=== PATIENT | female | born 1950 | race Caucasian/White ===

== ENCOUNTER 2017-03-10 18:51 | Emergency (ER) | payer OTHER ==
[~2017-03-10] VITALS: Ht 162.6 cm; Wt 92.5 kg
[~2017-03-10 18:51] MED LIST: ALEVE220 MG PO; ALKA-SELTZER P1 EAC6 PO; CARAFATE100 MG/ML PO; GUAIFENESIN600 M1 PO; NEXIUM40 MG PO; PAXIL20 MG PO; REQUIP1 MG PO; SINGULAIR10 MG PO; SYNTHROID50 MCG PO; TRAZODONE HCL50 MG PO; ZOFRAN4 MG PO
[2017-03-10 19:42] LABS: HEMATOCRIT 38.6 % (36.0-46.0); HEMOGLOBIN 13.2 G/DL (11.9-15.5); MCH 28.9 PG (29.0-34.0); MCHC 34.2 G/DL (30.0-36.0); MCV 84.5 FL (83-99); PLATELET COUNT 235 K/uL (156-360); RBC DIS.WIDTH-CV 12.7 % (11.8-14.6); RBC DIS.WIDTH-SD 38.4 % (39-53); RED BLOOD COUNT 4.57 M/uL (3.80-5.20); WHITE BLOOD COUNT 8.8 K/uL (4.1-10.2)
[2017-03-10 19:57] LABS: CHLORIDE 106 mEq/L (99-109); POTASSIUM 3.5 mEq/L (3.7-5.4)
[2017-03-10 19:58] LABS: SODIUM 141 mEq/L (136-147)
[2017-03-10 19:59] LABS: GLUCOSE 138 mg/dL (70-99)
[2017-03-10 20:03] LABS: GFR ESTIMATE (CALCULATED) 59 mL/min/
[2017-03-10 20:04] LABS: UREA NITROGEN (BUN) 11 mg/dL (9-23)
[2017-03-10 20:08] LABS: TROP-I INTERPRETATION NEGATIVE; TROPONIN-I 0.02 ng/mL (0.0-0.30)
[2017-03-10] MEDS ORDERED: PHENERGAN1.25 MG/ML PO (21:22)
[2017-03-10] MEDS ORDERED: PROAIR HFA8.5 GM IH (21:22)
[2017-03-10] MEDS ORDERED: DOXYCYCLINE HY100 MG PO (21:22)
[2017-03-10 22:25] VITALS: BP 169/110
== END 2017-03-10 22:52 | disposition home or self-care (01) ==
LOC: EME 18:51
DX: J40 Bronchitis, not specified as acute or chronic (principal); F17.200 Nicotine dependence, unspecified, uncomplicated; E11.9 Type 2 diabetes mellitus without complications; K21.9 Gastro-esophageal reflux disease without esophagitis; N18.9 Chronic kidney disease, unspecified; E03.9 Hypothyroidism, unspecified; F32.9 Major depressive disorder, single episode, unspecified; F41.9 Anxiety disorder, unspecified; G25.81 Restless legs syndrome; Z88.1 Allergy status to other antibiotic agents; Z88.5 Allergy status to narcotic agent; Z88.2 Allergy status to sulfonamides; Z88.0 Allergy status to penicillin
CPT/HCPCS: 71046; 80048; 84484; 85027; 87502; 93005; 99281; 99284

== ENCOUNTER 2017-03-16 13:52 | Inpatient (IN) | payer OTHER ==
[~2017-03-16] VITALS: Ht 162.6 cm; Wt 91.9 kg
[~2017-03-16 13:52] MED LIST changes: +DESYREL100 MG PO; +DOXYCYCLINE HY100 MG PO; -GUAIFENESIN600 M1 PO; +MUCINEX1200 MG PO; -PAXIL20 MG PO; +PAXIL30 MG PO; +PHENERGAN1.25 MG/ML PO; +PROAIR HFA8.5 GM IH; -REQUIP1 MG PO; +REQUIP3 MG PO; -TRAZODONE HCL50 MG PO
[2017-03-16 14:44] LABS: BASOPHIL (%) 0.2 % (0-1); EOSINOPHIL (%) 0 % (0-5); HEMOGLOBIN 14.3 G/DL (11.9-15.5); IMMATURE GRANULOCYTE (%) 0.2 % (0.0-0.7); LYMPHOCYTE (%) 31.3 % (15-42); LYMPHOCYTE COUNT 1.8 K/uL (1.0-2.8); MCH 28.3 PG (29.0-34.0); MCHC 33.3 G/DL (30.0-36.0); MONOCYTE (%) 8.8 % (3-12); MONOCYTE COUNT 0.5 K/uL (0-0.8); NEUTROPHIL (%) 59.5 % (45-76); NEUTROPHIL COUNT 3.4 K/uL (1.8-6.4); PLATELET COUNT 185 K/uL (156-360); RBC DIS.WIDTH-CV 12.7 % (11.8-14.6); RBC DIS.WIDTH-SD 39.2 % (39-53); RED BLOOD COUNT 5.06 M/uL (3.80-5.20); WHITE BLOOD COUNT 5.7 K/uL (4.1-10.2)
[2017-03-16 15:04] LABS: TROP-I INTERPRETATION NEGATIVE; TROPONIN-I 0.01 ng/mL (0.0-0.30)
[2017-03-16 15:08] LABS: ALBUMIN 3.8 g/dL (3.2-4.8); ALKALINE PHOSPHATASE 69 IU/L (3-129); ALT (GPT) 43 IU/L (3-49); AST (GOT) 87 IU/L (2-34); CHLORIDE 100 mEq/L (99-109); CREATININE 1.4 mg/dL (0.6-1.3); GFR ESTIMATE (CALCULATED) 40 mL/min/; GLUCOSE 103 mg/dL (70-99); POTASSIUM 4.7 mEq/L (3.7-5.4); SODIUM 138 mEq/L (136-147); TOTAL BILIRUBIN 0.3 mg/dL (0.0-1.0); TOTAL PROTEIN 7.1 g/dL (6.4-8.3); UREA NITROGEN (BUN) 21 mg/dL (9-23)
[2017-03-16 16:00] LABS: APPEARANCE SL.HAZY ((CLEAR)); BILIRUBIN NEGATIVE; BLOOD NEGATIVE; COLOR YELLOW ((YELLOW)); GLUCOSE (STRIP) NEGATIVE; KETONES NEGATIVE; LEUKOCYTES NEGATIVE; NITRITE NEGATIVE; PROTEIN (STRIP) 30; SPECIFIC GRAVITY 1.019 (1.000-1.030); UROBILINOGEN 0.2 MG/DL (0.2-1.0)
[2017-03-16 16:07] LABS: BACTERIA RARE /HPF; EPITHELIAL CELLS RARE /HPF; MUCUS TRACE /LPF; RED BLOOD CELLS 0-5 /HPF (0-5); UCUL ADDED? NO; WHITE BLOOD CELLS 0-5 /HPF (0-5)
[2017-03-16 17:48] LABS: TROP-I INTERPRETATION NEGATIVE; TROPONIN-I 0.02 ng/mL (0.0-0.30)
[2017-03-16 23:07] VITALS: BP 119/56
[2017-03-17 08:34] VITALS: BP 140/72
[2017-03-17 09:22] LABS: BENZODIAZEPINES, URINE SCREEN Negative (200 ng/mL)
[2017-03-17 12:20] VITALS: BP 120/68
[2017-03-17 15:50] VITALS: BP 115/61
[2017-03-17 19:48] VITALS: BP 108/62
[2017-03-17 23:54] VITALS: BP 142/73
[2017-03-18 07:15] LABS: BASOPHIL (%) 0 % (0-1); EOSINOPHIL (%) 0.2 % (0-5); HEMATOCRIT 31.6 % (36.0-46.0); LYMPHOCYTE COUNT 2.6 K/uL (1.0-2.8); MCH 28.7 PG (29.0-34.0); MCHC 32.9 G/DL (30.0-36.0); MCV 87.3 FL (83-99); MONOCYTE (%) 5.7 % (3-12); MONOCYTE COUNT 0.3 K/uL (0-0.8); NEUTROPHIL (%) 41.1 % (45-76); PLATELET COUNT 135 K/uL (156-360); RBC DIS.WIDTH-CV 12.8 % (11.8-14.6); RBC DIS.WIDTH-SD 40.8 % (39-53); WHITE BLOOD COUNT 4.9 K/uL (4.1-10.2)
[2017-03-18 07:19] LABS: HEMOGLOBIN 10.4 G/DL (11.9-15.5); RED BLOOD COUNT 3.62 M/uL (3.80-5.20)
[2017-03-18 07:31] VITALS: BP 165/77
[2017-03-18 07:46] LABS: CHLORIDE 107 MEQ/L (99-109); CREATININE 1.3 MG/DL (0.6-1.3); GFR ESTIMATE (CALCULATED) 43 mL/min/; GLUCOSE 100 mg/dL (70-99); SODIUM 141 MEQ/L (136-147); UREA NITROGEN (BUN) 12 mg/dL (9-23)
[2017-03-18 07:49] LABS: POTASSIUM 3.7 MEQ/L (3.7-5.4)
[2017-03-18 12:06] VITALS: BP 136/65
[2017-03-18 16:07] VITALS: BP 168/70
[2017-03-18 20:10] VITALS: BP 146/70
[2017-03-18 20:52] LABS: HEMATOCRIT 30.4 % (36.0-46.0); MCV 86.9 FL (83-99)
[2017-03-19 00:39] VITALS: BP 149/69
[2017-03-19 04:26] VITALS: BP 179/81
[2017-03-19 05:48] LABS: HEMATOCRIT 27.6 % (36.0-46.0); HEMOGLOBIN 8.9 G/DL (11.9-15.5); MCH 27.9 PG (29.0-34.0); MCHC 32.2 G/DL (30.0-36.0); MCV 86.5 FL (83-99); PLATELET COUNT 132 K/uL (156-360); RBC DIS.WIDTH-CV 12.8 % (11.8-14.6); RBC DIS.WIDTH-SD 40.6 % (39-53); RED BLOOD COUNT 3.19 M/uL (3.80-5.20); WHITE BLOOD COUNT 4.3 K/uL (4.1-10.2)
[2017-03-19 06:20] LABS: CHLORIDE 108 MEQ/L (99-109); CREATININE 1.1 MG/DL (0.6-1.3); GFR ESTIMATE (CALCULATED) 53 mL/min/; GLUCOSE 113 mg/dL (70-99); POTASSIUM 3.7 MEQ/L (3.7-5.4); SODIUM 142 MEQ/L (136-147); UREA NITROGEN (BUN) 8 mg/dL (9-23)
[2017-03-19 08:48] VITALS: BP 162/67
[2017-03-19 12:10] VITALS: BP 148/71
[2017-03-19 16:17] VITALS: BP 151/76
[2017-03-19 19:21] VITALS: BP 122/72
[2017-03-19 19:53] LABS: HEMATOCRIT 27.4 % (36.0-46.0); MCV 85.9 FL (83-99)
[2017-03-20] VITALS (8 sets, daily range): BP systolic 122–170; BP diastolic 62–75
[2017-03-20 05:29] LABS: HEMATOCRIT 26.3 % (36.0-46.0); HEMOGLOBIN 8.5 G/DL (11.9-15.5); MCH 27.9 PG (29.0-34.0); MCHC 32.3 G/DL (30.0-36.0); MCV 86.2 FL (83-99); PLATELET COUNT 140 K/uL (156-360); RBC DIS.WIDTH-CV 13.1 % (11.8-14.6); RBC DIS.WIDTH-SD 41.1 % (39-53); RED BLOOD COUNT 3.05 M/uL (3.80-5.20); WHITE BLOOD COUNT 5.2 K/uL (4.1-10.2)
[2017-03-20 05:48] LABS: CHLORIDE 109 MEQ/L (99-109); CREATININE 1.1 MG/DL (0.6-1.3); GFR ESTIMATE (CALCULATED) 53 mL/min/; GLUCOSE 109 mg/dL (70-99); POTASSIUM 3.6 MEQ/L (3.7-5.4); SODIUM 142 MEQ/L (136-147); UREA NITROGEN (BUN) 7 mg/dL (9-23)
[2017-03-21 00:26] VITALS: BP 181/81
[2017-03-21 04:29] VITALS: BP 190/80
[2017-03-21 05:10] VITALS: BP 143/69
[2017-03-21 06:03] LABS: HEMATOCRIT 26.5 % (36.0-46.0); HEMOGLOBIN 8.7 G/DL (11.9-15.5); MCH 28.3 PG (29.0-34.0); MCHC 32.8 G/DL (30.0-36.0); MCV 86.3 FL (83-99); PLATELET COUNT 153 K/uL (156-360); RBC DIS.WIDTH-SD 40.6 % (39-53); RED BLOOD COUNT 3.07 M/uL (3.80-5.20)
[2017-03-21 06:18] LABS: CHLORIDE 105 MEQ/L (99-109); CREATININE 1.2 MG/DL (0.6-1.3); GFR ESTIMATE (CALCULATED) 48 mL/min/; GLUCOSE 114 mg/dL (70-99); POTASSIUM 3.8 MEQ/L (3.7-5.4); SODIUM 140 MEQ/L (136-147); UREA NITROGEN (BUN) 8 mg/dL (9-23)
[2017-03-21 07:28] VITALS: BP 160/72
[2017-03-21] MEDS ORDERED: NIFEREX-150,FE150 MG PO (10:59)
[2017-03-21 11:57] VITALS: BP 171/81
== END 2017-03-21 12:09 | disposition home or self-care (01) | DRG 605 ==
LOC: EME 13:52 → EDOF 21:43 → 5WEST 21:43 → EDOF 21:43 → ENRESERV 21:44 → 5WEST 22:51 → ENPENDDIS 03-21 → 5WEST 03-21 12:09
PROVIDERS: Emergency Medicine; Hospitalist; Internal Medicine; Physician Assistant Medical
DX: S30.1XXA Contusion of abdominal wall, initial encounter (principal); J10.1 Influenza due to other identified influenza virus with other respiratory manifestations; S22.39XA Fracture of one rib, unspecified side, initial encounter for closed fracture; R55 Syncope and collapse; G25.81 Restless legs syndrome; E11.22 Type 2 diabetes mellitus with diabetic chronic kidney disease; N18.9 Chronic kidney disease, unspecified; I12.9 Hypertensive chronic kidney disease with stage 1 through stage 4 chronic kidney disease, or unspecified chronic kidney disease; E03.9 Hypothyroidism, unspecified; G43.909 Migraine, unspecified, not intractable, without status migrainosus; N18.3 Chronic kidney disease, stage 3 (moderate); W18.2XXA Fall in (into) shower or empty bathtub, initial encounter; E66.9 Obesity, unspecified; F41.9 Anxiety disorder, unspecified; F32.9 Major depressive disorder, single episode, unspecified; K21.9 Gastro-esophageal reflux disease without esophagitis; E87.6 Hypokalemia; I95.1 Orthostatic hypotension; E86.0 Dehydration; J40 Bronchitis, not specified as acute or chronic; F17.200 Nicotine dependence, unspecified, uncomplicated; G47.33 Obstructive sleep apnea (adult) (pediatric); R10.9 Unspecified abdominal pain; E78.5 Hyperlipidemia, unspecified; N17.9 Acute kidney failure, unspecified; R11.2 Nausea with vomiting, unspecified; G89.29 Other chronic pain; Z90.710 Acquired absence of both cervix and uterus; Z90.49 Acquired absence of other specified parts of digestive tract; Z88.2 Allergy status to sulfonamides; Z88.1 Allergy status to other antibiotic agents; Z79.899 Other long term (current) drug therapy; Z91.030 Bee allergy status; Z68.34 Body mass index [BMI] 34.0-34.9, adult; Z88.0 Allergy status to penicillin; Z91.013 Allergy to seafood; Y93.E1 Activity, personal bathing and showering; Z82.0 Family history of epilepsy and other diseases of the nervous system; Z83.3 Family history of diabetes mellitus
CPT/HCPCS: 70450; 71045; 71046; 71250; 72125; 73090; 73130; 74176; 80048; 80053; 80306 90; 81003; 84484; 85014; 85018; 85025; 85027; 87040; 87070; 87205; 87502; 93005; 94640; 94640 76; 94760; 94799; 99202; 99281; 99285; G0378; G0480; G8978 GP CI; G8979 GP CH; G8987 GO CJ; G8989 GO CI; J0456; J1650; J1885; J2405; J7030